=== PATIENT | male | born 1990 | race Caucasian/White ===

== ENCOUNTER 2017-05-30 17:40 | Emergency (ER) | payer MEDICAID ==
[~2017-05-30] VITALS: Ht 175.3 cm; Wt 110.0 kg
[~2017-05-30 17:40] MED LIST: ALBU17AE16 IH
[2017-05-30 18:24] LABS: BASOPHILS % (AUTO) 0.5 % (0.0-2.0); EOSINOPHILS % (AUTO) 0.3 % (1.0-6.0); HEMATOCRIT 46.5 % (41-53); HEMOGLOBIN 15.7 g/dL (13.5-17.5); LYMPHOCYTES # (AUTO) 3.1 K/uL (1.0-4.8); LYMPHOCYTES % (AUTO) 21.7 % (22.0-44.0); MEAN CORPUSCULAR HEMOGLOBIN 27.8 pg (26.0-34.0); MEAN CORPUSCULAR HGB CONC 33.8 G/dL (31.0-37.0); MEAN CORPUSCULAR VOLUME 82 fL (80-100); MONOCYTES # (AUTO) 0.7 K/uL (0.1-1.0); MONOCYTES % (AUTO) 5.2 % (2.0-9.0); NEUTROPHILS # (AUTO) 10.4 K/uL (1.8-7.7); NEUTROPHILS % (AUTO) 72.3 % (40.0-70.0); PLATELET COUNT (AUTO) 290 K/uL (150-450); RED BLOOD CELL COUNT(AUTO) 5.65 MIL/uL (4.50-5.90); RED CELL DISTRIBUTION WIDTH 13.1 % (11.5-14.5)
[2017-05-30 18:32] LABS: ANION GAP 8 mmol/L (8-16); CALCIUM, TOTAL 8.8 mg/dL (8.8-10.5); CARBON DIOXIDE 29 mmol/L (22-29); CHLORIDE 101 mmol/L (98-107); CREATININE 0.98 mg/dL (0.60-1.30); GLOMERULAR FILTR. RATE CALC > 60 mL/min (>60); GLUCOSE,RANDOM 143 mg/dL (70-110); POTASSIUM 4.3 mmol/L (3.5-5.1); SODIUM SERUM 138 mmol/L (136-145); UREA NITROGEN, BLOOD 17 mg/dL (7-18)
[2017-05-30 18:38] LABS: ALANINE AMINOTRANSFERASE 36 U/L (12-78); ALBUMIN 3.9 g/dL (3.4-5.0); ALKALINE PHOSPHATASE 109 U/L (46-116); ASPARTATE AMINOTRANSFERASE 14 U/L (15-37); BILIRUBIN,TOTAL 0.6 mg/dL (0.1-1.0); LIPASE 102 U/L (73-393)
[2017-05-30] MEDS ORDERED: SODIUM CHLORIDE 0.9% 1,000 ML IV ONE ×2 (18:45→19:45)
[2017-05-30] MEDS ORDERED: ONDANSETRON HCL 4 MG/2 ML VIAL IVP ONE (18:45)
[2017-05-30 21:04] VITALS: BP 119/84
== END 2017-05-30 21:06 | disposition home or self-care (01) ==
LOC: EMS 17:41
DX: R42 Dizziness and giddiness (principal); F13.10 Sedative, hypnotic or anxiolytic abuse, uncomplicated; R11.2 Nausea with vomiting, unspecified; J45.909 Unspecified asthma, uncomplicated
CPT/HCPCS: 36415; 80053; 83690; 85025; 93005; 96374; 99285; G0480; J2405; J7030

== ENCOUNTER 2023-12-11 08:24 | Emergency (ER) | payer BC, MEDICAID ==
[~2023-12-11] VITALS: Ht 175.3 cm; Wt 140.9 kg
[2023-12-11 08:28] VITALS: TEMP 97.9
[2023-12-11] MEDS: PERTUSS(ACELL),DIPH,TET/PF 0.5 ML SYRINGE [ADULT] IM. ONE (09:24)
[2023-12-11 09:25] VITALS: BP 130/83; PULSE 79; RESP 16
== END 2023-12-11 10:02 | disposition home or self-care (01) ==
LOC: EMS 08:24
DX: S61.431A Puncture wound without foreign body of right hand, initial encounter (principal); J45.909 Unspecified asthma, uncomplicated; W45.8XXA Other foreign body or object entering through skin, initial encounter; Y93.89 Activity, other specified; Y92.89 Other specified places as the place of occurrence of the external cause; Y99.8 Other external cause status
CPT/HCPCS: 90471; 90715; 99283

== ENCOUNTER 2023-12-28 03:12 | Emergency (ER) | payer BC | END 2023-12-28 03:36 | disposition left against medical advice (07) | LOC: EMS 03:12 | DX: Z53.21 Procedure and treatment not carried out due to patient leaving prior to being seen by health care provider (principal) ==

== ENCOUNTER 2023-12-28 07:05 | Emergency (ER) | payer BC ==
[~2023-12-28] VITALS: Ht 175.3 cm; Wt 140.9 kg
[2023-12-28 07:11] VITALS: TEMP 98.2
[2023-12-28 08:30] VITALS: BP 130/88; PULSE 70; RESP 16; O2SAT 100
== END 2023-12-28 08:43 | disposition home or self-care (01) ==
LOC: EMS 07:05
DX: S29.011A Strain of muscle and tendon of front wall of thorax, initial encounter (principal); J45.909 Unspecified asthma, uncomplicated; F12.90 Cannabis use, unspecified, uncomplicated; Y08.89XA Assault by other specified means, initial encounter; Y93.89 Activity, other specified; Y92.89 Other specified places as the place of occurrence of the external cause; Y99.8 Other external cause status
CPT/HCPCS: 71101; 99283

== ENCOUNTER 2024-01-15 09:47 | Emergency (ER) | payer BC ==
[~2024-01-15] VITALS: Ht 175.3 cm; Wt 140.9 kg
[2024-01-15 09:51] VITALS: TEMP 98.2
[2024-01-15] MEDS: IBUPROFEN 800 MG TABLET PO ONE (12:11)
[2024-01-15] MEDS ORDERED: IBUP-1554 PO (13:09)
[2024-01-15 14:00] VITALS: BP 120/80; PULSE 75; RESP 18; O2SAT 98
== END 2024-01-15 14:16 | disposition home or self-care (01) ==
LOC: EMS 09:47
DX: S20.211A Contusion of right front wall of thorax, initial encounter (principal); J45.909 Unspecified asthma, uncomplicated; F12.90 Cannabis use, unspecified, uncomplicated; W19.XXXA Unspecified fall, initial encounter; Y93.89 Activity, other specified; Y92.89 Other specified places as the place of occurrence of the external cause; Y99.8 Other external cause status
CPT/HCPCS: 71045; 99283